=== PATIENT | female | born 1945 | race Hispanic/Latino ===

== ENCOUNTER → 2017-08-23 | Outpatient (CLI) | payer OTHER, MEDICARE ==
[~2017-08-23] MED LIST: ASPI-555 PO; BIMA12.5OS OU; CALC-724 PO; CHOL200074 PO; CYAN-35 PO; FISH1CAP20 PO; GLUC100019 PO; LOSA50TA37 PO; MULT1CAP32 PO; SIMV10TA6 PO
== END ==
LOC: RAH 07:51
PROVIDERS: ATTEND Physician Assistant Medical
DX: Z12.31 Encounter for screening mammogram for malignant neoplasm of breast (principal)
CPT/HCPCS: 77067

== ENCOUNTER 2017-12-17 09:13 | Day surgery (SDC) | payer OTHER, MEDICARE ==
[~2017-12-17] VITALS: Ht 157.5 cm; Wt 59.6 kg
[~2017-12-17 09:13] MED LIST changes: -ASPI-555 PO; -BIMA12.5OS OU; -CALC-724 PO; -CHOL200074 PO; -CYAN-35 PO; -FISH1CAP20 PO; -GLUC100019 PO; -LOSA50TA37 PO; -MULT1CAP32 PO; -SIMV10TA6 PO; +SODIUM CHLORIDE 0.9% 1000ML 1,000 ML IV ONE
[2017-12-17 10:43] VITALS: BP 156/84
[2017-12-17] MEDS ORDERED: PROPOFOL 10 MG/ML 20ML VIAL IV ONE (11:16)
[2017-12-17] MEDS ORDERED: LOSA50TA37 PO (11:26)
[2017-12-17] MEDS ORDERED: CYAN-35 PO (11:26)
[2017-12-17] MEDS ORDERED: CHOL200074 PO (11:26)
[2017-12-17] MEDS ORDERED: MULT1CAP32 PO (11:26)
[2017-12-17] MEDS ORDERED: GLUC100019 PO (11:26)
[2017-12-17] MEDS ORDERED: SIMV10TA6 PO (11:26)
[2017-12-17] MEDS ORDERED: CALC-724 PO (11:29)
[2017-12-17] MEDS ORDERED: FISH1CAP20 PO (11:29)
[2017-12-17] MEDS ORDERED: ASPI-555 PO (11:29)
[2017-12-17] MEDS ORDERED: BIMA12.5OS OU (11:29)
== END 2017-12-17 12:15 | disposition home or self-care (01) ==
LOC: DAH 09:13
PROVIDERS: ATTEND Internal Medicine
DX: D12.0 Benign neoplasm of cecum (principal); D12.3 Benign neoplasm of transverse colon; D12.4 Benign neoplasm of descending colon; D12.2 Benign neoplasm of ascending colon; K64.0 First degree hemorrhoids; E78.5 Hyperlipidemia, unspecified; I10 Essential (primary) hypertension; K57.30 Diverticulosis of large intestine without perforation or abscess without bleeding; Z79.899 Other long term (current) drug therapy; Z79.82 Long term (current) use of aspirin; Z90.49 Acquired absence of other specified parts of digestive tract; Z87.891 Personal history of nicotine dependence
CPT/HCPCS: 45380; 45385; 88305; 93005; A4606; J2704; J7030

== ENCOUNTER → 2018-08-24 | Outpatient (CLI) | payer OTHER, MEDICARE ==
[~2018-08-24] MED LIST changes: +ASPI-555 PO; +BIMA12.5OS OU; +CALC-724 PO; +CHOL200074 PO; +CYAN-35 PO; +FISH1CAP20 PO; +GLUC100019 PO; +LOSA50TA64 PO; +MULT1CAP32 PO; +SIMV10TA6 PO; -SODIUM CHLORIDE 0.9% 1000ML 1,000 ML IV ONE
== END | disposition home or self-care (01) ==
LOC: RAH 13:09
PROVIDERS: ATTEND Family Medicine
DX: Z12.31 Encounter for screening mammogram for malignant neoplasm of breast (principal)
CPT/HCPCS: 77067

== ENCOUNTER → 2019-08-28 | Outpatient (CLI) | payer OTHER, MEDICARE ==
[~2019-08-28] MED LIST changes: -SIMV10TA6 PO; +SIMV10TA97 PO
== END | disposition home or self-care (01) ==
LOC: RAH 12:37
PROVIDERS: ATTEND Family Medicine
DX: Z12.31 Encounter for screening mammogram for malignant neoplasm of breast (principal)
CPT/HCPCS: 77067

== ENCOUNTER → 2020-08-28 | Outpatient (CLI) | payer OTHER, MEDICARE ==
[~2020-08-28] MED LIST changes: -ASPI-555 PO; +ASPI-556 PO; +CALC-1158 PO; -CALC-724 PO
== END | disposition home or self-care (01) ==
LOC: RAH 09:19
PROVIDERS: ATTEND Family Medicine
DX: Z12.13 Encounter for screening for malignant neoplasm of small intestine (principal)
CPT/HCPCS: 77067

== ENCOUNTER → 2022-09-30 | Outpatient (CLI) | payer OTHER, MEDICARE | END | disposition home or self-care (01) | LOC: RAH 10:32 | PROVIDERS: ATTEND Family Medicine | DX: Z12.31 Encounter for screening mammogram for malignant neoplasm of breast (principal) | CPT/HCPCS: 77067 ==

== ENCOUNTER → 2023-11-12 | Outpatient (CLI) | payer OTHER, MEDICARE | END | disposition home or self-care (01) | LOC: RAH 09:31 | PROVIDERS: ATTEND Family Medicine | DX: Z12.31 Encounter for screening mammogram for malignant neoplasm of breast (principal); R92.30 Dense breasts, unspecified | CPT/HCPCS: 77067 ==

== ENCOUNTER → 2024-11-13 | Outpatient (CLI) | payer OTHER, MEDICARE ==
--- NOTE | 2024-11-14 09:27 | HMCIMG ---
Exam Type: MAMMO SCREENING BILATERAL Clinical Information: ANNUAL SCREENING Comparison: November 12, 2023 Technique: Mammogram with CAD was performed with CC and MLO projections. CAD shows no worrisome regions. FINDINGS: The breasts are heterogeneously dense, which may obscure small masses. No dominant mass or suspicious microcalcification identified. There is no nipple retraction or skin thickening. Benign-appearing calcifications are seen. CAD shows no worrisome regions. IMPRESSION: 1. No mammographic signs of malignancy. 2. Routine follow-up recommended. CATEGORY 2: BENIGN FINDINGS Note: A negative x-ray should not delay biopsy if a dominant or clinically suspicious mass is present, since 8-10% of cancers are not identified by mammography. Dense breasts may obscure an underlying neoplasm.
== END | disposition home or self-care (01) ==
LOC: RAH 10:28
PROVIDERS: ATTEND Family Medicine
DX: Z12.31 Encounter for screening mammogram for malignant neoplasm of breast (principal); R92.333 Mammographic heterogeneous density, bilateral breasts; R92.1 Mammographic calcification found on diagnostic imaging of breast
CPT/HCPCS: 77067